=== PATIENT | female | born 2000 | race Caucasian/White ===

== ENCOUNTER 2024-05-24 06:21 | Day surgery (SDC) | payer BC, SELFPAY | END 2024-05-24 11:30 | disposition home or self-care (01) | LOC: GI 06:21 | PROVIDERS: ATTENDING PHYSICIAN Internal Medicine Gastroenterology | DX: R12 Heartburn (principal); R76.8 Other specified abnormal immunological findings in serum | CPT/HCPCS: 43239; 88305 ==